=== PATIENT | male | born 1980 | race Caucasian/White ===

== ENCOUNTER 2016-11-13 08:49 | Emergency (ER) | payer BC ==
[2016-11-13] MEDS ORDERED: Sodium Chloride 0.9% 1,000 ML PRIMARY IV ONE ×2 (09:03→10:07)
[2016-11-13] MEDS ORDERED: ONDANSETRON 4 MG/2 ML VIAL IVP ONE (09:03)
[2016-11-13] MEDS ORDERED: KETOROLAC 30 MG/1 ML VIAL IVP ONE (09:03)
[2016-11-13 09:09] LABS: BASOPHILS # (AUTO) 0.04 10*3/UL; BASOPHILS % (AUTO) 0.5 % (0-1); EOSINOPHILS % (AUTO) 2.3 % (0-8); IMM GRAN % (AUTO) 0.1 % (0-5); IMM GRAN# (AUTO) 0.01 10*3/UL; LYMPHOCYTES # (AUTO) 2.95 10*3/uL; LYMPHOCYTES % (AUTO) 36.3 % (10-50); MEAN CORPUSCULAR HEMOGLOBIN 29.6 PG (27-31); MEAN CORPUSCULAR HGB CONC 35.6 g/dL (33-37); MONOCYTES # (AUTO) 0.85 10*3/UL (0.3-0.8); MONOCYTES % (AUTO) 10.5 % (5-15); NEUTROPHILS # (AUTO) 4.09 10*3/UL; NEUTROPHILS % (AUTO) 50.3 % (50-80); RDW COEFFICIENT OF VARIATION 12.9 % (11.5-14.5); WHITE BLOOD COUNT 8.13 10^3/uL (4.8-10.8)
--- NOTE | 2016-11-13 09:09 | PDOC ---
Male Genitourinary Problem HPI - General Chief Complaint: Genitourinary Complaint Stated Complaint: KIDNEY STONE Date Seen by Provider: 11/13/16 Time Seen by Provider: 09:05 Source: POSITIVE: Patient Exam Limitations: POSITIVE: No limitations Nurse's Notes Reviewed & Considered: Yes - History of Present Illness Initial Comments: Patient comes in today to complaint of right flank and abdominal pain. Patient with a history of kidney stones, developed right flank and abdominal pain beginning 2 days ago he states he passed 2 stones in the last 24 hours that he visually salt. Now he has increasing pain beyond what he is already experienced and has come in for further evaluation. He denies any fevers, no headache, no shortness of breath, no cough, he does have nausea but no vomiting. No diarrhea. Patient is presently tachycardic and tachypneic. Body Location Affected: REPORTS: Abdomen, Back Timing: REPORTS: Abrupt, Intermittent, Getting Worse Duration: >24 hours Severity: Severe Quality: REPORTS: Cramping, "Pain", Stabbing, Throbbing Sexual History: REPORTS: Non-Contributory Associated Symptoms: REPORTS: Pain, Blood in Urine, Abdominal Pain, Right Similar Symptoms Previously: Yes Recent Care Received: REPORTS: Denies Any Prior Injuries Related to Current Complaint?: No - Patient Home Medications Home Medications: Home Medications Fluoxetine HCl [Prozac] 20 mg PO DAILY 11/13/16 Omeprazole Magnesium [Prilosec Otc] 20 mg PO DAILY 11/13/16 traZODone Tab [Desyrel Tab] 50 mg PO HS PRN 11/13/16 - Patient Allergies Allergies/Adverse Reactions: Allergies Allergy/AdvReac Type Severity Reaction Status Date / Time No Known Allergies Allergy Verified 11/13/16 08:56 ROS - Limitations ROS Limitations: No Limitations Constitution: REPORTS: Chills, Diaphoresis Cardiovascular: REPORTS: Denies Cardiac Symptoms Respiratory: REPORTS: Denies Resp Symptoms Neurological: REPORTS: Denies Neuro Symptoms Gastrointestinal: REPORTS: Abdominal Pain, Nausea Endocrine: REPORTS: Denies Symptoms Musculoskeletal: REPORTS: Back Pain Genitourinary: REPORTS: Flank Pain, Hematuria Eyes: REPORTS: Denies Symptoms ENT: REPORTS: Denies Symptoms Skin: REPORTS: Denies Skin Symptoms Lympathic: REPORTS: Denies Lympathic Symptoms Immunologic: POSITIVE: Denies Symptoms Psychiatric: POSITIVE: Denies Psych Symptoms Male Genitourinary Exam - General Appearance General Appearance: POSITIVE: Alert, Cooperative, No Evidence of Trauma - Abdomen Abdomen: Soft: (All Quadrants), Normal Bowel Sounds: (All Quadrants), No Splenomegaly: (All Quadrants), No Hepatomegaly: (All Quadrants), No Rebound: ( All Quadrants), No Palpable Pulse: (All Quadrants), Tenderness Noted: (RLQ) - HEENT HEENT: POSITIVE: Head Inspection Nml, Eyes Inspection Nml, Ears Inspection Nml, Nose Inspection Nml, PERRL, EOMI - Neck Neck: POSITIVE: Normal Inspection, No Apparent Injury - Respiratory Respiratory: POSITIVE: No Respiratory Distress, Breath Sounds Normal, Chest Non- Tender - Cardiovascular Cardiovascular: POSITIVE: Regular Rate and Rhythm, Heart Sounds Normal - Back Back: POSITIVE: CVA Tenderness (R) - Extremities Extremity: Non-Tender: (All Extremities), Normal ROM: (All Extremities), Normal Inspection: (All Extremities) - Neurological / Psychological Neurological: POSITIVE: Affect Apporpriate, Oriented X3 - Skin Skin: POSITIVE: Intact, Normal For Race, Warm, Dry, No Rash Male Genitourinary Progress - Results Reviewed by me Xrays/CTs/US Reviewed by me: Yes Discussed with Radiologist: No Lab Results Reviewed: Yes Lab Results: Laboratory Results 11/13/16 Range/Units 08:50 WBC 8.13 (4.8-10.8) 10^3/uL RBC 5.40 (4.70-6.10) 10^6/uL Hgb 16.0 (14.0-18.0) g/dL Hct 45.0 (42.0-52.0) % MCV 83.3 (80-90) FL MCH 29.6 (27-31) PG MCHC 35.6 (33-37) g/dL RDW Std Deviation 38.9 L (39-50) fL RDW Coeff of Malik 12.9 (11.5-14.5) % Plt Count 387 H (140-350) 10*3/uL MPV 10.0 (7.4-12.2) FL Immature Gran % (Auto) 0.1 (0-5) % Neut % (Auto) 50.3 (50-80) % Lymph % (Auto) 36.3 (10-50) % Mason % (Auto) 10.5 (5-15) % Eos % (Auto) 2.3 (0-8) % Baso % (Auto) 0.5 (0-1) % Immature Gran # (Auto) 0.01 10*3/UL Neut # (Auto) 4.09 10*3/UL Lymph # (Auto) 2.95 10*3/uL Mason # (Auto) 0.85 H (0.3-0.8) 10*3/UL Eos # (Auto) 0.19 10*3/UL Baso # (Auto) 0.04 10*3/UL WBC Morphology Comment Normal morphology (NORM) Plt Morphology Comment Normal morphology (NORM) RBC Morph Comment Normal morphology (NORM) Sodium 143 (135-145) meq/L Potassium 3.6 L (3.8-5.2) meq/L Chloride 104 (98-112) meq/L Carbon Dioxide 27 (23-33) meq/L Anion Gap 12 (5-20) BUN 5 L (7-22) mg/dL Creatinine 0.8 (0.70-1.50) mg/dL Estimated GFR > 60 (>60 ml/min/1.73m(2)) BUN/Creatinine Ratio 6.25 (6-20) Glucose 76 L (78-110) mg/dL Calculated Osmolality 291.0 (267-292) mOsm/kg Calcium 9.5 (8.7-10.7) mg/dL Total Bilirubin 0.5 (0.3-1.2) mg/dL AST 21 (21-57) IU/L ALT 34 (21-72) IU/L Alkaline Phosphatase 99 (38-126) IU/L Total Protein 8.0 (6.1-8.0) g/dL Albumin 4.8 (3.5-4.8) g/dL Globulin 3.2 (2.50-4.10) g/dL Albumin/Globulin Ratio 1.50 (1.3-2.0) mg/g Ur Collection Type Clean catch urine Urine Color Yellow Urine Clarity Clear (CLEAR) Urine pH 6.5 (5.0-8.5) Ur Specific [place] 1.025 (1.005-1.030) Urine Protein Negative (NEG) mg/dl Urine Glucose (UA) Negative (NEG) mg/dL Urine Ketones Negative (NEG) Urine Occult Blood Large H (NEG) Urine Nitrate Negative (NEG) Urine Bilirubin Negative (NEG) Urine Urobilinogen 0.2 (0.2) EU/dL Ur Leukocyte Esterase Negative (NEG) Urine RBC 25-30 (NONE) /hpf Urine WBC 0-3 (NONE) Ur Squamous Epith Cells None (NONE) Ur Renal Epithelial Cell None (NONE) Urine Crystals None Urine Bacteria None (NONE) Urine Casts None (NONE) Urine Mucus Moderate (NONE) Urine Trichomonas None (NONE) Urine Yeast None (NONE) Ur Culture Indicated? Culture not set - Patient's Progress Pain Medication Addressed: POSITIVE: Yes Re-Examine Time:: 10:43 Status: POSITIVE: Improved MDM / ED Course: Patient was brought into the emergency Department, examined, an IV was started, blood drawn and sent to lab for studies, radiographic studies were obtained. Patient received 2 L of normal saline, Toradol, morphine sulfate, and Zofran. His symptoms did improve, and he was much more relaxed. Laboratory findings: Are unremarkable. CT findings: Per my interpretation there is a stone at the UVC junction on the right. The stone appears to be only partially obstructing. Assessment: Renal calculi at the right UVJ. Plan: Patient is being discharged home with a prescription for Bailey, Flomax, and instructions for hydration, straining his urine, and to follow up with urology. Patient Care Time - Estimated PCT Patient Care Time (In Minutes): 30 Vital Signs - Recent Vital Signs Vital Signs: Vital Signs (Last 8 hours) Temp Pulse Resp BP Pulse Ox 11/13/16 10:15 82 16 128/105 94 11/13/16 08:51 97.9 F 105 H 20 154/105 98 - VS Reviewed Vital Signs Reviewed: Yes Discharge Clinical Impression: Calculus of right kidney Discharge Disposition: Discharged to Home Condition: Fair Patient Instructions Given at Discharge: Kidney Stones (ED)
[2016-11-13 09:10] LABS: BILIRUBIN,URINE NEGATIVE (NEG); CLARITY,URINE CLEAR (CLEAR); GLUCOSE, URINE (UA) NEGATIVE (NEG); LEUKOCYTE ESTERASE ,URINE NEGATIVE (NEG); NITRATE,URINE NEGATIVE (NEG); OCCULT BLOOD,URINE LARGE (NEG); PH,URINE 6.5 (5.0-8.5); PROTEIN,URINE NEGATIVE (NEG); UROBILINOGEN,URINE 0.2 EU/dL (0.2)
[2016-11-13 09:12] LABS: PLATELET MORPHOLOGY COMMENT NORMAL MORPHOLOGY (NORM); URINE SAMPLE TYPE CLEAN CATCH URINE
[2016-11-13 09:14] LABS: ASPARTATE AMINO TRANSFERASE 21 IU/L (21-57); BILIRUBIN,TOTAL 0.5 mg/dL (0.3-1.2); BLOOD UREA NITROGEN 5 mg/dL (7-22); BUN/CREATININE RATIO 6.25 (6-20); CALCIUM 9.5 mg/dL (8.7-10.7); CHLORIDE 104 meq/L (98-112); CREATININE 0.8 mg/dL (0.70-1.50); EST GLOMERULAR FILTRATION > 60 (>60 ml/min/1.73m(2)); GLUCOSE 76 mg/dL (78-110); POTASSIUM 3.6 meq/L (3.8-5.2); SODIUM 143 meq/L (135-145)
[2016-11-13 09:17] LABS: RBC,URINE 25-30 /hpf; WBC,URINE 0-3
[2016-11-13 09:31] VITALS: TEMP 97.9
[2016-11-13] MEDS: MORPHINE SULFATE 4 MG/1 ML IVP ONE ×2 (09:35→10:08)
[2016-11-13] MEDS ORDERED: MORPHINE SULFATE 4 MG/1 ML IVP ONE (10:07)
[2016-11-13] MEDS ORDERED: TAMSULOSIN 0.4 MG CAPSULE PO ONE (10:08)
[2016-11-13 10:16] VITALS: RESP 16
--- NOTE | 2016-11-13 11:38 | DI ---
CT ABDOMEN SCAN WITHOUT IV CONTRAST, 11/13/2016 10:00 AM : Clinical History: Right flank pain and right groin pain with gross hematuria. Previous Exam: None at this facility. Scans are performed from the lower lung bases through the liver and kidneys without IV contrast. Sagi ttal and coronal reformatted images are generated. The lung bases are clear. The liver is normal. The gallbladder is grossly normal. There is no abnorma lity of the spleen, pancreas, and adrenal glands. Both kidneys are normal in size, shape, position an d contour. There is no left hydronephrosis or hydroureter. There is no right hydronephrosis but there is mild right hydroureter secondary to a 3 mm calculus in the distal right ureter at the ureterovesi cular junction. There is no extravasation of urine. There is no right or left ureteral calculus visua lized. There are no abnormal retrocrural or periaortic nodes. No ascites is present. READIN. Mild hydroureter on the right side secondary to a 3 mm distal ureteral calculus at the ureteroves icular junction. There is no extravasation and this is a low-grade partial obstruction. Both kidneys in the left ureter are normal. 2. The remainder of the exam is normal. CT PELVIS SCAN WITHOUT IV CONTRAST, 11/13/2016 10:00 AM : Clinical History: See above. Previous Exam: None. Scans are performed from the inferior margin of the liver and kidneys to the symphysis pubis without IV contrast. There is no free fluid collection and there is no adenopathy. The appendix is normal. The appendix is filled with high density material that either represents ingested antacid such as milk of magnesia, Maalox, or TUMS, or this may represent some fecal lifts. The small bowel, terminal ileum, and ileocec al valve are normal. The colon is also normal. There is a small umbilical hernia through which only m esenteric fat has herniated on the right side. READING: Normal CT pelvis scan.
== END 2016-11-13 11:01 | disposition home or self-care (01) ==
LOC: ER 08:49
DX: N20.2 Calculus of kidney with calculus of ureter (principal); R11.0 Nausea; M54.5 Low back pain
CPT/HCPCS: 74176; 80053; 81001; 81003; 85025; 96361; 96374; 96375; 96376; 99283; 99284; J1885; J2270; J2405; J7030

== ENCOUNTER 2017-02-02 10:55 | Emergency (ER) | payer BC ==
[2017-02-02 11:25] VITALS: RESP 18; TEMP 98.5
[2017-02-02] MEDS ORDERED: Sodium Chloride 0.9% 1,000 ML PRIMARY IV ONE (11:29)
[2017-02-02] MEDS ORDERED: ONDANSETRON 4 MG/2 ML VIAL IVP ONE (11:29)
[2017-02-02] MEDS ORDERED: MORPHINE SULFATE 4 MG/1 ML IVP ONE ×2 (11:29→12:39)
--- NOTE | 2017-02-02 11:33 | PDOC ---
Nausea/Vomiting/Diarrhea HPI - General Chief Complaint: Nausea / Vomiting / Diarrhea Stated Complaint: N/V, BLOODY DIARRHEA X SEVERAL DAYS Date Seen by Provider: 02/02/17 Time Seen by Provider: 11:28 Source: POSITIVE: Patient Exam Limitations: POSITIVE: No limitations Nurse's Notes Reviewed & Considered: Yes - History of Present Illness Initial Comments: Patient comes in today with chief complaint of abdominal pain. His abdominal pain is predominantly in his right lower quadrant but does radiate throughout his abdomen. He's having bloody diarrhea with mucus present. He has a history of Crohn's disease and feels this is a Crohn's flare. Ongoing for 3 days. He states he does have chills but denies any fever or sweats. He denies any nausea or vomiting but he does have bloody diarrhea. Denies any chest pain, shortness of breath, cough. Denies any rashes. Body Location Affected: REPORTS: Abdomen Timing: REPORTS: Constant, Getting Worse Duration: <1 week Severity: Moderate Quality: REPORTS: Cramping, "Pain", Stabbing, Tenderness Abdominal Pain Onset Location: REPORTS: RLQ, Generalized abdomen Abdominal Pain Radiation: REPORTS: Periumbilical Context: REPORTS: None Modifying Factors: improves with: Nothing Associated Symptoms: REPORTS: Mucous Diarrhea, Bloody Diarrhea, Cramping Similar Symptoms Previously: Yes Recent Care Received: REPORTS: Denies Any Prior Injuries Related to Current Complaint?: Yes (Crohn's disease) - Patient Home Medications Home Medications: Home Medications Fluoxetine HCl [Prozac] 40 mg PO DAILY 11/13/16 Omeprazole Magnesium [Prilosec Otc] 20 mg PO DAILY 11/13/16 traZODone Tab [Desyrel Tab] 50 mg PO HS PRN 11/13/16 - Patient Allergies Allergies/Adverse Reactions: Allergies Allergy/AdvReac Type Severity Reaction Status Date / Time No Known Allergies Allergy Verified 02/02/17 11:07 Past Medical History - heen HEENT History: Denies History Cardiovascular History: Denies History Respiratory History: Denies History Gastrointestinal History: GERD, Crohn's Genitourinary History: Kidney Stones Additional Genitourinary History: MAY 2016 Endocrine History: Denies History Musculoskeletal History: Denies History Prosthesis or Implant: No Neurological History: Denies History Blood Disorders: Denies History Psychiatric History: Denies History Additional Psychiatric History: 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 AND IS NOW WEANING OFF PROZAC Male Reproductive History: Denies History Cancer History: Denies History In Past Year Been Physically Harmed or Verbally Threatened: No History of MDRO: No Tobacco Use: Former Smoker Alcohol Use: Rarely Substance Use Type: None Previous Surgical History: Yes Type / Date of Surgery: THORACIC OUTLET SURGERY, R SHOULDER Anesthesia Reactions: No Malignant Hyperthermia: No Significant Family History: No pertinent family hx ROS - Limitations ROS Limitations: No Limitations Constitution: REPORTS: Chills Cardiovascular: REPORTS: Denies Cardiac Symptoms Respiratory: REPORTS: Denies Resp Symptoms Neurological: REPORTS: Denies Neuro Symptoms Gastrointestinal: REPORTS: Abdominal Pain, Diarrhea, Bloody Stools Endocrine: REPORTS: Denies Symptoms Musculoskeletal: REPORTS: Denies MS Symptoms Genitourinary: REPORTS: Denies Symptoms Eyes: REPORTS: Denies Symptoms ENT: REPORTS: Denies Symptoms Skin: REPORTS: Denies Skin Symptoms Lympathic: REPORTS: Denies Lympathic Symptoms Immunologic: POSITIVE: Denies Symptoms Psychiatric: POSITIVE: Denies Psych Symptoms Nausea/Vomiting/Diarrhea Exam - General Appearance General Appearance: POSITIVE: Alert, Cooperative, No Evidence of Trauma, Moderate Distress - HEENT HEENT: POSITIVE: Head Inspection Nml, Eyes Inspection Nml, Ears Inspection Nml, Nose Inspection Nml, PERRL, EOMI - Neck Neck: POSITIVE: Supple, Normal Inspection, Non Tender - Respiratory Respiratory: POSITIVE: No Respiratory Distress, Breath Sounds Normal, Chest Non- Tender - Cardiovascular Cardiovascular: POSITIVE: Regular Rate and Rhythm, Heart Sounds Normal - Chest Chest: POSITIVE: Non Tender - Abdomen Abdomen: Soft: (All Quadrants), Normal Bowel Sounds: (All Quadrants), No Splenomegaly: (All Quadrants), No Hepatomegaly: (All Quadrants), Tenderness Noted: (RLQ), Guarding: (RLQ) - Back Back: POSITIVE: Normal Inspection - Skin Skin: POSITIVE: Intact, Normal For Race, Warm, Dry, No Rash - Extremities Extremity: Non-Tender: (All Extremities), Normal ROM: (All Extremities), Normal Inspection: (All Extremities), Pelvis Stable: (All Extremities) - Neurological / Psychological Neurological: POSITIVE: Affect Apporpriate, Oriented X3, Motor Normal, Sensation Normal N/V/D Progress - Results Reviewed by me Xrays/CTs/US Reviewed by me: Yes Discussed with Radiologist: Yes Lab Results Reviewed: Yes Lab Results:: Laboratory Results 02/02/17 02/02/17 Range/Units 11:00 12:38 WBC 7.05 (4.8-10.8) 10^3/uL RBC 4.73 (4.70-6.10) 10^6/uL Hgb 14.3 (14.0-18.0) g/dL Hct 41.0 L (42.0-52.0) % MCV 86.7 (80-90) FL MCH 30.2 (27-31) PG MCHC 34.9 (33-37) g/dL RDW Std Deviation 42.6 (39-50) fL RDW Coeff of Malik 13.8 (11.5-14.5) % Plt Count 345 (140-350) 10*3/uL MPV 9.7 (7.4-12.2) FL Immature Gran % (Auto) 0.1 (0-5) % Neut % (Auto) 62.3 (50-80) % Lymph % (Auto) 26.4 (10-50) % Hyde % (Auto) 9.9 (5-15) % Eos % (Auto) 0.7 (0-8) % Baso % (Auto) 0.6 (0-1) % Immature Gran # (Auto) 0.01 10*3/UL Neut # (Auto) 4.39 10*3/UL Lymph # (Auto) 1.86 10*3/uL Hyde # (Auto) 0.70 (0.3-0.8) 10*3/UL Eos # (Auto) 0.05 10*3/UL Baso # (Auto) 0.04 10*3/UL WBC Morphology Comment Normal morphology (NORM) Plt Morphology Comment Normal morphology (NORM) RBC Morph Comment Normal morphology (NORM) PT 10.7 (9.7-11.4) secs INR 1.04 (0.00-5.90) N/A Sodium 141 (135-145) meq/L Potassium 3.5 L (3.8-5.2) meq/L Chloride 104 (98-112) meq/L Carbon Dioxide 22 L (23-33) meq/L Anion Gap 15 (5-20) BUN 8 (7-22) mg/dL Creatinine 0.8 (0.70-1.50) mg/dL Estimated GFR > 60 (>60 ml/min/1.73m(2)) BUN/Creatinine Ratio 10.00 (6-20) Glucose 89 (78-110) mg/dL Calculated Osmolality 288.0 (267-292) mOsm/kg Calcium 9.3 (8.7-10.7) mg/dL Magnesium 2.0 (1.6-2.4) mg/dL Total Bilirubin 0.7 (0.3-1.2) mg/dL AST 28 (21-57) IU/L ALT 28 (21-72) IU/L Alkaline Phosphatase 82 (38-126) IU/L Total Protein 7.7 (6.1-8.0) g/dL Albumin 4.4 (3.5-4.8) g/dL Globulin 3.3 (2.50-4.10) g/dL Albumin/Globulin Ratio 1.30 (1.3-2.0) mg/g Ur Collection Type Clean catch urine Urine Color Yellow Urine Clarity Clear (CLEAR) Urine pH 7.5 (5.0-8.5) Ur Specific [place] 1.015 (1.005-1.030) Urine Protein Negative (NEG) mg/dl Urine Glucose (UA) Negative (NEG) mg/dL Urine Ketones Negative (NEG) Urine Occult Blood Negative (NEG) Urine Nitrate Negative (NEG) Urine Bilirubin Negative (NEG) Urine Urobilinogen 0.2 (0.2) EU/dL Ur Leukocyte Esterase Negative (NEG) Ur Culture Indicated? Culture not set Stool Occult Blood Negative (NEGATIVE) - Patient's Progress Pain Medication Addressed: POSITIVE: Yes Re-examine Time: 13:34 Status: POSITIVE: Improved MDM / ED Course: Patient was examined, IV started, blood drawn and sent to the lab for studies, radiographic examinations obtained. Patient received IV morphine 2 doses, Zofran, and normal saline. His symptoms did improve. Findings: CBC is unremarkable, comprehensive metabolic panel is unremarkable, urinalysis is negative, CT scan of his abdomen shows no acute intra-abdominal processes. Assessment: Abdominal pain with possible Crohn's flare. Next Plan: Discharge home, prescription for pain medicine, prescription for nausea medicine, and follow up with GI. - Consult Counseled: POSITIVE: Patient, RE: Lab Results, RE: Radiology Results, RE: DX, RE : Need for F/U Patient Care Time - Estimated PCT Patient Care Time (In Minutes): 45 Vital Signs - Recent Vital Signs Vital Signs: Vital Signs (Last 8 hours) Temp Pulse Resp BP Pulse Ox 02/02/17 10:55 98.5 F 87 18 151/108 96 - VS Reviewed Vital Signs Reviewed: Yes Discharge Clinical Impression: Abdominal pain Discharge Disposition: Discharged to Home Condition: Stable Patient Instructions Given at Discharge: Acute Abdominal Pain (ED)
[2017-02-02 11:37] LABS: BASOPHILS # (AUTO) 0.04 10*3/UL; BASOPHILS % (AUTO) 0.6 % (0-1); BILIRUBIN,URINE NEGATIVE (NEG); COLOR,URINE YELLOW; EOSINOPHILS # (AUTO) 0.05 10*3/UL; EOSINOPHILS % (AUTO) 0.7 % (0-8); GLUCOSE, URINE (UA) NEGATIVE (NEG); HEMOGLOBIN 14.3 g/dL (14.0-18.0); LYMPHOCYTES # (AUTO) 1.86 10*3/uL; MEAN CORPUSCULAR HEMOGLOBIN 30.2 PG (27-31); MEAN CORPUSCULAR HGB CONC 34.9 g/dL (33-37); MEAN CORPUSCULAR VOLUME 86.7 FL (80-90); MEAN PLATELET VOLUME 9.7 FL (7.4-12.2); MONOCYTES % (AUTO) 9.9 % (5-15); NEUTROPHILS # (AUTO) 4.39 10*3/UL; NEUTROPHILS % (AUTO) 62.3 % (50-80); NITRATE,URINE NEGATIVE (NEG); OCCULT BLOOD,URINE NEGATIVE (NEG); PH,URINE 7.5 (5.0-8.5); PROTEIN,URINE NEGATIVE (NEG); RED BLOOD COUNT 4.73 10^6/uL (4.70-6.10); UROBILINOGEN,URINE 0.2 EU/dL (0.2)
[2017-02-02 11:39] LABS: PLATELET MORPHOLOGY COMMENT NORMAL MORPHOLOGY (NORM); RBC MORPHOLOGY COMMENT NORMAL MORPHOLOGY (NORM); WBC MORPHOLOGY COMMENT NORMAL MORPHOLOGY (NORM)
[2017-02-02 11:40] LABS: CLARITY,URINE CLEAR (CLEAR); URINE SAMPLE TYPE CLEAN CATCH URINE
[2017-02-02 11:42] LABS: BLOOD UREA NITROGEN 8 mg/dL (7-22); CALCIUM 9.3 mg/dL (8.7-10.7); EST GLOMERULAR FILTRATION > 60 (>60 ml/min/1.73m(2)); SERUM ALBUMIN 4.4 g/dL (3.5-4.8)
--- NOTE | 2017-02-02 12:30 | DI ---
CT ABDOMEN SCAN WITH IV CONTRAST, 02/02/2017 11:29 AM : Clinical History: Abdominal pain with bloody diarrhea. Previous Exam: 11/13/2016. Scans are performed from the lower lung bases through the liver and kidneys with IV contrast. 95 ml o f Isovue 300 was injected IV. Water was used for rectal contrast but the patient could not tolerate t he standard volume. The lung bases are clear. The liver is normal. The gallbladder is grossly normal. There is no abnorma lity of the spleen, pancreas, and adrenal glands. Both kidneys are normal in size, shape, position an d contour. There is no hydronephrosis or hydroureter. No renal or ureteral calculi are present. There are no abnormal retrocrural or periaortic nodes. No ascites is present. READING: Normal CT abdomen scan. CT PELVIS SCAN WITH IV CONTRAST, 02/02/2017 11:29 AM: Clinical History: See above. Previous Exam: 11/13/2016. Scans are performed from just superior to the umbilicus to the symphysis pubis with IV contrast. This is the same bolus of contrast used for the CT scans of the abdomen. Scans through the lower abdomen and pelvis show no masses or abnormal fluid collections. There is no adenopathy. The appendix is not identified with certainty, but there is no inflammatory mass in eithe r in the cecal tip or in the right lower quadrant. The small bowel, terminal ileum, and ileocecal slime ve are normal. The colon is normal. There is no evidence of mucosal thickening to indicate acute coli tis. There are no diverticula, or evidence to suggest Crohn's disease. There are no hernias. READING: Normal CT scan of the pelvis. There is no evidence to indicate CT findings of acute colitis or Crohn' s disease.
== END 2017-02-02 13:47 | disposition home or self-care (01) ==
LOC: ER 10:55
DX: R10.31 Right lower quadrant pain (principal); K92.1 Melena; K50.90 Crohn's disease, unspecified, without complications
CPT/HCPCS: 74177; 80053; 81003; 82272; 83735; 85025; 85610; 87205; 96361; 96374; 96375; 96376; 99283; J2270; J2405; J7030

== ENCOUNTER 2017-02-17 11:57 | Emergency (ER) | payer BC ==
[2017-02-17] MEDS: Sodium Chloride 0.9% 1,000 ML PRIMARY IV ONE ×2 (12:05→14:18)
[2017-02-17] MEDS ORDERED: HYDROmorphone 2 MG/1 ML IVP ONE ×2 (12:13→13:41)
[2017-02-17] MEDS ORDERED: ONDANSETRON 4 MG/2 ML VIAL IVP ONE (12:13)
[2017-02-17] MEDS ORDERED: NORMAL SALINE 10 ML SYRINGE FLUSH IVP PRN (12:13)
[2017-02-17] MEDS ORDERED: TAMSULOSIN 0.4 MG CAPSULE PO ONE (12:15)
[2017-02-17 12:17] VITALS: RESP 18; TEMP 98.6
[2017-02-17 12:20] LABS: BASOPHILS # (AUTO) 0.06 10*3/UL; BASOPHILS % (AUTO) 0.8 % (0-1); EOSINOPHILS # (AUTO) 0.05 10*3/UL; EOSINOPHILS % (AUTO) 0.6 % (0-8); HEMATOCRIT 41.2 % (42.0-52.0); HEMOGLOBIN 14.4 g/dL (14.0-18.0); LYMPHOCYTES # (AUTO) 2.53 10*3/uL; MEAN CORPUSCULAR HEMOGLOBIN 30.3 PG (27-31); MEAN CORPUSCULAR VOLUME 86.7 FL (80-90); MEAN PLATELET VOLUME 9.2 FL (7.4-12.2); MONOCYTES # (AUTO) 0.68 10*3/UL (0.3-0.8); MONOCYTES % (AUTO) 8.6 % (5-15); NEUTROPHILS # (AUTO) 4.59 10*3/UL; NEUTROPHILS % (AUTO) 57.8 % (50-80); RED BLOOD COUNT 4.75 10^6/uL (4.70-6.10)
[2017-02-17 12:24] LABS: PLATELET MORPHOLOGY COMMENT NORMAL MORPHOLOGY (NORM); RBC MORPHOLOGY COMMENT NORMAL MORPHOLOGY (NORM); WBC MORPHOLOGY COMMENT NORMAL MORPHOLOGY (NORM)
[2017-02-17 12:27] LABS: BLOOD UREA NITROGEN 7 mg/dL (7-22); BUN/CREATININE RATIO 8.75 (6-20); CALCIUM 9.6 mg/dL (8.7-10.7); EST GLOMERULAR FILTRATION > 60 (>60 ml/min/1.73m(2)); LIPASE 92 IU/L (23-300); SERUM ALBUMIN 4.6 g/dL (3.5-4.8)
[2017-02-17 13:11] LABS: BILIRUBIN,URINE NEGATIVE (NEG); COLOR,URINE YELLOW; GLUCOSE, URINE (UA) NEGATIVE (NEG); NITRATE,URINE NEGATIVE (NEG); OCCULT BLOOD,URINE LARGE (NEG); PH,URINE 8.5 (5.0-8.5); PROTEIN,URINE NEGATIVE (NEG); UROBILINOGEN,URINE 0.2 EU/dL (0.2)
[2017-02-17 13:13] LABS: CLARITY,URINE SLIGHTLY CLOUDY (CLEAR)
[2017-02-17 13:14] LABS: RBC,URINE >100 /hpf; SQUAMOUS EPITHELIAL CELL,UR RARE; URINE SAMPLE TYPE VOID
[2017-02-17] MEDS ORDERED: KETOROLAC 30 MG/1 ML VIAL IVP ONE (13:32)
--- NOTE | 2017-02-17 14:25 | DI ---
CT ABDOMEN SCAN WITH IV CONTRAST, 02/17/2017 12:14 PM : Clinical History: Abdominal pain. Previous Exam: 02/02/2017. Scans are performed from the lower lung bases through the liver and kidneys with IV contrast. 75 ml o f Isovue 300 was injected IV. The lung bases are clear. The liver is normal. The gallbladder is grossly normal. There is no abnorma lity of the spleen, pancreas, and adrenal glands. Both kidneys are normal in size, shape, position an d contour. There is no hydronephrosis or left hydroureter. The right ureter is slightly larger in madie iber than the left side but no ureteral calculus is identified. No renal or left ureteral calculi are present. There are no abnormal retrocrural or periaortic nodes. No ascites is present. READIN. The right ureter is slightly larger than the left side but no renal or ureteral calculi are seen and there is no calculus in the bladder. The left kidney and ureter are normal. 2. The remainder of the exam is normal. CT PELVIS SCAN WITH IV CONTRAST, 02/17/2017 12:14 PM: Clinical History: See above. Previous Exam: 02/02/2017. Scans are performed from just superior to the umbilicus to the symphysis pubis with IV contrast. This is the same bolus of contrast used for the CT scans of the abdomen. Scans through the lower abdomen and pelvis show no masses or abnormal fluid collections. There is no adenopathy. There is "malrotation" of the cecum and the cecum lies just inferior to the gallbladder a nd this is a different location from the scans performed one week earlier. The appendix on the previo us study was readily visible but it is not visible on this current exam. There is no inflammatory/inf iltrative change in the cecum or in the periserosal tissues and mesenteric fat surrounding the cecum. There is no inflammatory mass in the right lower quadrant. The small bowel, terminal ileum, and ileo cecal valve are normal. The remainder of the colon is also normal. There are no hernias. READIN. The cecum is in a different location than on the previous study performed about one week earlier. The appendix is not visualized on this study but was readily visible on the previous exam. However, the cecal tip is normal and there is no inflammatory/infiltrative change in the region of the cecum o r in the right lower quadrant. 2. The remainder of the exam is normal.
--- NOTE | 2017-02-17 14:43 | PDOC ---
Male Genitourinary Problem HPI - General Chief Complaint: Genitourinary Complaint Stated Complaint: i'm passing kidney stones Date Seen by Provider: 02/17/17 Time Seen by Provider: 12:01 Source: POSITIVE: Patient Exam Limitations: POSITIVE: No limitations Nurse's Notes Reviewed & Considered: Yes - History of Present Illness Initial Comments: The patient is a 36-year-old male. He states that around 6:30 AM this morning, approximately 5-1/2 hours [employer]UFTING [employer] he developed right flank and right lower quadrant pain abruptly. He states he had some hematuria and he thinks that "I may have passed a kidney stone". Patient reportedly has a history of kidney stones. He states that since 6:30 AM he has continued to have some right lower quadrant pain radiating into his penis. No penile discharges. No fevers or chills. No nausea, vomiting, diarrhea, melena, hematochezia or hematemesis. No dysuria. He states he has a history of Crohn's disease. Body Location Affected: REPORTS: Abdomen (Right flank) Timing: REPORTS: Abrupt, Constant Duration: 4-6 hours Severity: Moderate Quality: REPORTS: "Pain" Context: REPORTS: Other (please comment) (As above). DENIES: Drug Use, Lifting , Trauma, Recent Surgery Sexual History: REPORTS: Non-Contributory Associated Symptoms: REPORTS: Blood in Urine, Abdominal Pain (Right lower abdomen) Similar Symptoms Previously: Yes Recent Care Received: REPORTS: Recently Seen, Treated by MD (Patient states he was treated for a flareup of Crohn's disease 2 weeks ago.) - Patient Home Medications Home Medications: Home Medications Fluoxetine HCl [Prozac] 40 mg PO DAILY 11/13/16 Omeprazole Magnesium [Prilosec Otc] 20 mg PO DAILY 11/13/16 traZODone Tab [Desyrel Tab] 50 mg PO HS PRN 11/13/16 HYDROcodone/APAP 10/325 Tab [[place] 10/325 Tab] 1 tab PO Q6H PRN #29 tab Tamsulosin HCl [Flomax] 0.4 mg PO DAILY #10 cap 02/17/17 - Patient Allergies Allergies/Adverse Reactions: Allergies Allergy/AdvReac Type Severity Reaction Status Date / Time No Known Allergies Allergy Verified 02/17/17 12:03 Past Medical History - heen HEENT History: Denies History Cardiovascular History: Denies History Respiratory History: Denies History Gastrointestinal History: GERD, Crohn's Genitourinary History: Kidney Stones Additional Genitourinary History: MAY 2016, OCT 2016 Endocrine History: Denies History Musculoskeletal History: Denies History Prosthesis or Implant: No Neurological History: Denies History Blood Disorders: Denies History Psychiatric History: Depression Additional Psychiatric History: 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 Male Reproductive History: Denies History Cancer History: Denies History In Past Year Been Physically Harmed or Verbally Threatened: No History of MDRO: No Tobacco Use: Former Smoker Alcohol Use: Rarely Substance Use Type: None Previous Surgical History: Yes Type / Date of Surgery: THORACIC OUTLET SURGERY, R SHOULDER Anesthesia Reactions: No Malignant Hyperthermia: No Significant Family History: No pertinent family hx Past Medical History Reviewed: Reviewed - No Changes ROS - Limitations ROS Limitations: No Limitations Constitution: REPORTS: Denies Symptoms Cardiovascular: REPORTS: Denies Cardiac Symptoms Respiratory: REPORTS: Denies Resp Symptoms Neurological: REPORTS: Denies Neuro Symptoms Gastrointestinal: REPORTS: Abdominal Pain (Right lower abdomen and right flank) Endocrine: REPORTS: Denies Symptoms Musculoskeletal: REPORTS: Denies MS Symptoms Genitourinary: REPORTS: Flank Pain (Right), Hematuria Eyes: REPORTS: Denies Symptoms ENT: REPORTS: Denies Symptoms Skin: REPORTS: Denies Skin Symptoms Lympathic: REPORTS: Denies Lympathic Symptoms Immunologic: POSITIVE: Denies Symptoms Psychiatric: POSITIVE: Denies Psych Symptoms Male Genitourinary Exam - General Appearance General Appearance: POSITIVE: Alert, Cooperative, No Acute Distress, No Evidence of Trauma - Abdomen Abdomen: Soft: (All Quadrants), Normal Bowel Sounds: (All Quadrants), Denies Tenderness: (LLQ), (LUQ), (RUQ), No Splenomegaly: (All Quadrants), No Hepatomegaly: (All Quadrants), No Guarding: (All Quadrants), No Rebound: (All Quadrants), No Palpable Pulse: (All Quadrants), No Palpabale Mass: (All Quadrants), No Distention: (All Quadrants), No Rigidity: (All Quadrants), Tenderness Noted: (RLQ) Additional Details: Abdominal examination shows bowel sounds to be active. Patient does indicate discomfort on firm deep palpation right lower quadrant without masses, organomegaly or rebound. No hernias. No testicular pain on palpation. Circumcised. No penile discharge. - Genital / Rectal Genitals: POSITIVE: Normal Inspection, Normal Palp. of Testicles, Circumcised - Neck Neck: POSITIVE: Normal Inspection, No Apparent Injury - Respiratory Respiratory: POSITIVE: No Respiratory Distress, Breath Sounds Normal, Chest Non- Tender - Cardiovascular Cardiovascular: POSITIVE: Regular Rate and Rhythm, Heart Sounds Normal, Equal Pulses, Strong Pulses Peripheral Pulses: Radial (R): 2+, Radial (L): 2+ - Back Back: POSITIVE: CVA Tenderness (R) (Mild discomfort right flank expressed on firm percussion) - Extremities Extremity: Non-Tender: (All Extremities), Normal ROM: (All Extremities), Normal Inspection: (All Extremities) - Neurological / Psychological Neurological: POSITIVE: 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 The right ureter is a little bit larger than the left. No definite ureterolith's identified. Appendix normal. Lab Results Reviewed: Yes Lab Results: Laboratory Results 02/17/17 02/17/17 Range/Units 12:18 13:07 WBC 7.93 (4.8-10.8) 10^3/uL RBC 4.75 (4.70-6.10) 10^6/uL Hgb 14.4 (14.0-18.0) g/dL Hct 41.2 L (42.0-52.0) % MCV 86.7 (80-90) FL MCH 30.3 (27-31) PG MCHC 35.0 (33-37) g/dL RDW Std Deviation 41.3 (39-50) fL RDW Coeff of Malik 13.3 (11.5-14.5) % Plt Count 399 H (140-350) 10*3/uL MPV 9.2 (7.4-12.2) FL Immature Gran % (Auto) 0.3 (0-5) % Neut % (Auto) 57.8 (50-80) % Lymph % (Auto) 31.9 (10-50) % [place] % (Auto) 8.6 (5-15) % Eos % (Auto) 0.6 (0-8) % Baso % (Auto) 0.8 (0-1) % Immature Gran # (Auto) 0.02 10*3/UL Neut # (Auto) 4.59 10*3/UL Lymph # (Auto) 2.53 10*3/uL [place] # (Auto) 0.68 (0.3-0.8) 10*3/UL Eos # (Auto) 0.05 10*3/UL Baso # (Auto) 0.06 10*3/UL WBC Morphology Comment Normal morphology (NORM) Plt Morphology Comment Normal morphology (NORM) RBC Morph Comment Normal morphology (NORM) Sodium 141 (135-145) meq/L Potassium 3.6 L (3.8-5.2) meq/L Chloride 102 (98-112) meq/L Carbon Dioxide 25 (23-33) meq/L Anion Gap 14 (5-20) BUN 7 (7-22) mg/dL Creatinine 0.8 (0.70-1.50) mg/dL Estimated GFR > 60 (>60 ml/min/1.73m(2)) BUN/Creatinine Ratio 8.75 (6-20) Glucose 91 (78-110) mg/dL Calculated Osmolality 289.0 (267-292) mOsm/kg Calcium 9.6 (8.7-10.7) mg/dL Total Bilirubin 0.5 (0.3-1.2) mg/dL AST 27 (21-57) IU/L ALT 33 (21-72) IU/L Alkaline Phosphatase 87 (38-126) IU/L Total Protein 8.0 (6.1-8.0) g/dL Albumin 4.6 (3.5-4.8) g/dL Globulin 3.4 (2.50-4.10) g/dL Albumin/Globulin Ratio 1.30 (1.3-2.0) mg/g Amylase 80 (30-110) U/L Lipase 92 (23-300) IU/L Ur Collection Type Void Urine Color Yellow Urine Clarity Slightly cloudy (CLEAR) Urine pH 8.5 (5.0-8.5) Ur Specific [place] 1.015 (1.005-1.030) Urine Protein Negative (NEG) mg/dl Urine Glucose (UA) Negative (NEG) mg/dL Urine Ketones Negative (NEG) Urine Occult Blood Large H (NEG) Urine Nitrate Negative (NEG) Urine Bilirubin Negative (NEG) Urine Urobilinogen 0.2 (0.2) EU/dL Ur Leukocyte Esterase Negative (NEG) Urine RBC >100 (NONE) /hpf Urine WBC None (NONE) Ur Squamous Epith Cells Rare (NONE) Ur Renal Epithelial Cell None (NONE) Urine Crystals None Urine Bacteria None (NONE) Urine Casts None (NONE) Urine Mucus None (NONE) Urine Trichomonas None (NONE) Urine Yeast None (NONE) Ur Culture Indicated? Culture not set - Patient's Progress Pain Medication Addressed: POSITIVE: Yes (Dilaudid IV for pain) School/Work Release Addressed: POSITIVE: Yes (May return to work) Re-Examine Time:: 14:00 Re-Examine Comment: Minimal discomfort on discharge. Status: POSITIVE: Improved, Re-Examined - Consult Counseled: POSITIVE: Patient, RE: Lab Results, RE: Radiology Results, RE: DX, RE : Need for F/U Patient Care Time - Estimated PCT Patient Care Time (In Minutes): 50 Vital Signs - Recent Vital Signs Vital Signs: Vital Signs (Last 8 hours) Temp Pulse Pulse Resp BP BP Pulse Ox 02/17/17 14:22 98.6 F 84 18 137/64 98 02/17/17 11:58 98.6 F 90 18 147/82 98 - VS Reviewed Vital Signs Reviewed: Yes Discharge Clinical Impression: Ureterolithiasis, Hematuria Discharge Disposition: Discharged to Home Condition: Stable Prescriptions / Orders: Tamsulosin HCl [Flomax] 0.4 mg PO DAILY #10 cap HYDROcodone/APAP 10/325 Tab [[place] 10/325 Tab] 1 tab PO Q6H PRN #29 tab PRN Reason: Pain Patient Instructions Given at Discharge: Hematuria (ED), Ureteral Stones (ED) Additional Instructions: Your blood tests are normal. Analysis of your urine does show some red blood cells in your urine microscopically. CT scan of the abdomen and pelvis shows no definite stones in your ureter, although radiologist feels that the right ureter is a little prominent, which could be compatible with a recently passed stone. It is possible that you may have a very small nonobstructing stone which you're trying to pass. Please do the following: Strain your urine and check for the passage of a small stone, increase her fluid intake, Flomax taken one daily, hydrocodone/APAP taken one every 6 hours as necessary for pain. Follow-up with urology in [place] if you continue having symptoms beyond 2 or 3 days. Return here anytime if condition worsens, especially if you develop fevers or chills. Follow Up With: NONE,NONE [Primary Care Provider] - (Instructions as above. Follow-up with urology in [place] as above. Return here as necessary.)
== END 2017-02-17 14:22 | disposition home or self-care (01) ==
LOC: ER 11:57
DX: N20.1 Calculus of ureter (principal); R31.9 Hematuria, unspecified; K50.90 Crohn's disease, unspecified, without complications; R10.31 Right lower quadrant pain
CPT/HCPCS: 74177; 80053; 81001; 81003; 82150; 83690; 85025; 96361; 96374; 96375; 96376; 99283; 99284; J1885; J1170; J2405; J7030

== ENCOUNTER → 2017-02-17 | Outpatient (CLI) | payer BC | LOC: MOB LAB 12:39 | PROVIDERS: ATTEND Physician Assistant | DX: R10.84 Generalized abdominal pain (principal); R31.9 Hematuria, unspecified | CPT/HCPCS: 87088 ==

== ENCOUNTER 2017-03-09 12:19 | Emergency (ER) | payer BC ==
[2017-03-09] MEDS ORDERED: NORMAL SALINE 10 ML SYRINGE FLUSH IVP PRN ×2 (12:45→12:47)
[2017-03-09] MEDS ORDERED: Sodium Chloride 0.9% 1,000 ML PRIMARY IV ONE (12:45)
[2017-03-09] MEDS ORDERED: ONDANSETRON 4 MG/2 ML VIAL IVP ONE (12:45)
[2017-03-09] MEDS ORDERED: HYDROmorphone 2 MG/1 ML IVP ONE ×2 (12:45→14:06)
[2017-03-09 12:56] VITALS: RESP 18; TEMP 98.1
[2017-03-09 13:05] LABS: BASOPHILS # (AUTO) 0.05 10*3/UL; BASOPHILS % (AUTO) 0.6 % (0-1); EOSINOPHILS # (AUTO) 0.03 10*3/UL; EOSINOPHILS % (AUTO) 0.3 % (0-8); HEMATOCRIT 41.8 % (42.0-52.0); HEMOGLOBIN 14.1 g/dL (14.0-18.0); LYMPHOCYTES # (AUTO) 1.92 10*3/uL; MEAN CORPUSCULAR HEMOGLOBIN 29.3 PG (27-31); MEAN CORPUSCULAR HGB CONC 33.7 g/dL (33-37); MEAN CORPUSCULAR VOLUME 86.7 FL (80-90); MEAN PLATELET VOLUME 9.7 FL (7.4-12.2); MONOCYTES # (AUTO) 0.76 10*3/UL (0.3-0.8); MONOCYTES % (AUTO) 8.5 % (5-15); NEUTROPHILS # (AUTO) 6.18 10*3/UL; NEUTROPHILS % (AUTO) 68.6 % (50-80); RED BLOOD COUNT 4.82 10^6/uL (4.70-6.10)
[2017-03-09 13:08] LABS: PLATELET MORPHOLOGY COMMENT NORMAL MORPHOLOGY (NORM); RBC MORPHOLOGY COMMENT NORMAL MORPHOLOGY (NORM); WBC MORPHOLOGY COMMENT NORMAL MORPHOLOGY (NORM)
[2017-03-09 13:15] LABS: BLOOD UREA NITROGEN 8 mg/dL (7-22); CALCIUM 8.8 mg/dL (8.7-10.7); EST GLOMERULAR FILTRATION > 60 (>60 ml/min/1.73m(2)); LIPASE 108 IU/L (23-300); SERUM ALBUMIN 4.2 g/dL (3.5-4.8)
[2017-03-09] MEDS ORDERED: methylPREDNISolone Succ Inj 250 MG in Sodium Chloride 0.9% 100 ML IV ONE (14:34)
--- NOTE | 2017-03-09 14:34 | DI ---
CT ABD W/CN AND PELVIS W/CN,03/09/2017 12:49 PM: Clinical History: Abdominal pain. Previous Exam: None at this facility. Findings: Multiple helically acquired CT images are obtained through the abdomen and pelvis following the admin istration of 75 mL of Isovue-300, and demonstrate a normal appendix. The liver, gallbladder, spleen, pancreas, adrenals and kidneys are unremarkable. There is no mesenteric or retroperitoneal lymphadenopathy. Urinary bladder is unremarkable. There is no free air nor free fluid. The lung bases are clear. Impression: No acute intra-abdominal pathology.
--- NOTE | 2017-03-09 22:49 | PDOC ---
Abdomen/Flank HPI - General Chief Complaint: Abdomen Pain Stated Complaint: ABD PAIN/DIARRHEA Date Seen by Provider: 03/09/17 Time Seen by Provider: 12:35 Source: POSITIVE: Patient Exam Limitations: POSITIVE: No limitations Nurse's Notes Reviewed & Considered: Yes - History of Present Illness Initial Comments: The patient is a 36-year-old male. He presents to the emergency room complaining of diarrhea for the past week along with some associated lower abdominal pain. He states he's had nausea but no vomiting. No known fevers. Patient states he was diagnosed with clostridium to [place] in the past. He has a history of Crohn's disease. No history of abdominal surgery. 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 No melena or hematochezia. No fevers or chills. No urinary symptoms. Body Location Affected: REPORTS: Abdomen Timing: REPORTS: Constant Duration: <1 week (Approximately one week) Severity: Moderate Quality: REPORTS: Cramping, "Pain" (Lower abdomen) Abdominal Pain Onset Location: REPORTS: RLQ, LLQ Abdominal Pain Radiation: REPORTS: No radiation Context: REPORTS: None Modifying Factors: improves with: Nothing Associated Symptoms: REPORTS: Nausea Similar Symptoms Previously: Yes (with exacerbation of his Crohn's) Recent Care Received: REPORTS: Denies Any Prior Injuries Related to Current Complaint?: No - Patient Home Medications Home Medications: Home Medications Fluoxetine HCl [Prozac] 40 mg PO DAILY 11/13/16 traZODone Tab [Desyrel Tab] 50 mg PO HS PRN 11/13/16 HYDROcodone/APAP 10/325 Tab [[place] 10/325 Tab] 1 tab PO Q4H PRN #25 tab predniSONE Tab [Deltasone Tab] 10 mg PO DAILY #20 tab 03/09/17 - Patient Allergies Allergies/Adverse Reactions: Allergies Allergy/AdvReac Type Severity Reaction Status Date / Time No Known Allergies Allergy Verified 03/09/17 12:36 Past Medical History - heen HEENT History: Denies History Cardiovascular History: Denies History Respiratory History: Denies History Gastrointestinal History: GERD, Crohn's Genitourinary History: Kidney Stones Additional Genitourinary History: MAY 2016, OCT 2016 Endocrine History: Denies History Musculoskeletal History: Denies History Prosthesis or Implant: No Neurological History: Denies History Blood Disorders: Denies History Psychiatric History: Depression Additional Psychiatric History: 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 History of Sexually Transmitted Diseases: No Cancer History: Denies History In Past Year Been Physically Harmed or Verbally Threatened: No History of MDRO: No History of Other Communicable Diseases: No Tobacco Use: Former Smoker Alcohol Use: Rarely Substance Use Type: None Previous Surgical History: Yes Type / Date of Surgery: THORACIC OUTLET SURGERY, R SHOULDER Anesthesia Reactions: No Malignant Hyperthermia: No Significant Family History: No pertinent family hx Past Medical History Reviewed: Reviewed - No Changes ROS - Limitations ROS Limitations: No Limitations Constitution: REPORTS: Denies Symptoms Cardiovascular: REPORTS: Denies Cardiac Symptoms Respiratory: REPORTS: Denies Resp Symptoms Neurological: REPORTS: Denies Neuro Symptoms Gastrointestinal: REPORTS: Abdominal Pain, Nausea, Diarrhea Endocrine: REPORTS: Denies Symptoms Musculoskeletal: REPORTS: Denies MS Symptoms Eyes: REPORTS: Denies Symptoms ENT: REPORTS: Denies Symptoms Skin: REPORTS: Denies Skin Symptoms Lympathic: REPORTS: Denies Lympathic Symptoms Immunologic: POSITIVE: Denies Symptoms Psychiatric: POSITIVE: Denies Psych Symptoms Abdominal/Flank Pain PE - General Appearance General Appearance: POSITIVE: Alert, Cooperative, No Evidence of Trauma, Moderate Distress - HEENT HEENT: POSITIVE: Head Inspection Nml, Eyes Inspection Nml, Ears Inspection Nml, Nose Inspection Nml, Oral/Dental Inspect. Nml, Pharynx Inspect. Nml, PERRL, EOMI - Neck Neck: POSITIVE: Normal Inspection, No Apparent Injury - Respiratory Respiratory: POSITIVE: No Respiratory Distress, Breath Sounds Normal, Chest Non- Tender - Cardiovascular Cardiovascular: POSITIVE: Regular Rate and Rhythm, Heart Sounds Normal, Equal Pulses, Strong Pulses Peripheral Pulses: Radial (R): 2+, Radial (L): 2+ - Chest Chest: POSITIVE: Non Tender - Abdomen Abdomen: Soft: (All Quadrants), Normal Bowel Sounds: (All Quadrants), Denies Tenderness: (RUQ), (LUQ), No Splenomegaly: (All Quadrants), No Hepatomegaly: ( All Quadrants), No Guarding: (All Quadrants), No Rebound: (All Quadrants), No Palpable Pulse: (All Quadrants), No Palpabale Mass: (All Quadrants), No Distention: (All Quadrants), No Rigidity: (All Quadrants), Tenderness Noted: ( RLQ), (LLQ) Additional Abdominal Details: Abdominal examination shows bowel sounds to be present. Patient does expressed discomfort/pain on palpation over the left and right lower abdominal areas. No pain above the umbilicus. No masses, organomegaly or rebound. 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 Lab Results Reviewed: Yes Lab Results:: Laboratory Results 03/09/17 Range/Units 12:45 WBC 8.99 (4.8-10.8) 10^3/uL RBC 4.82 (4.70-6.10) 10^6/uL Hgb 14.1 (14.0-18.0) g/dL Hct 41.8 L (42.0-52.0) % MCV 86.7 (80-90) FL MCH 29.3 (27-31) PG MCHC 33.7 (33-37) g/dL RDW Std Deviation 40.0 (39-50) fL RDW Coeff of Malik 12.8 (11.5-14.5) % Plt Count 380 H (140-350) 10*3/uL MPV 9.7 (7.4-12.2) FL Immature Gran % (Auto) 0.6 (0-5) % Neut % (Auto) 68.6 (50-80) % Lymph % (Auto) 21.4 (10-50) % [place] % (Auto) 8.5 (5-15) % Eos % (Auto) 0.3 (0-8) % Baso % (Auto) 0.6 (0-1) % Immature Gran # (Auto) 0.05 10*3/UL Neut # (Auto) 6.18 10*3/UL Lymph # (Auto) 1.92 10*3/uL [place] # (Auto) 0.76 (0.3-0.8) 10*3/UL Eos # (Auto) 0.03 10*3/UL Baso # (Auto) 0.05 10*3/UL WBC Morphology Comment Normal morphology (NORM) Plt Morphology Comment Normal morphology (NORM) RBC Morph Comment Normal morphology (NORM) Sodium 141 (135-145) meq/L Potassium 3.2 L (3.8-5.2) meq/L Chloride 107 (98-112) meq/L Carbon Dioxide 21 L (23-33) meq/L Anion Gap 13 (5-20) BUN 8 (7-22) mg/dL Creatinine 0.8 (0.70-1.50) mg/dL Estimated GFR > 60 (>60 ml/min/1.73m(2)) BUN/Creatinine Ratio 10.00 (6-20) Glucose 85 (78-110) mg/dL Calculated Osmolality 288.0 (267-292) mOsm/kg Calcium 8.8 (8.7-10.7) mg/dL Total Bilirubin 0.5 (0.3-1.2) mg/dL AST 28 (21-57) IU/L ALT 48 (21-72) IU/L Alkaline Phosphatase 91 (38-126) IU/L Total Protein 7.7 (6.1-8.0) g/dL Albumin 4.2 (3.5-4.8) g/dL Globulin 3.5 (2.50-4.10) g/dL Albumin/Globulin Ratio 1.20 L (1.3-2.0) mg/g Amylase 81 (30-110) U/L Lipase 108 (23-300) IU/L - Patient's Progress Pain Medication Addressed: POSITIVE: Yes (Patient given Dilaudid for pain.) School/Work Release Addressed: POSITIVE: Not Applicable Re-examine Time: 14:30 Re-Examine Comment: Patient hydrated with normal saline and given Dilaudid for his abdominal pain and Zofran IV for nausea. 256 mg of Solu-Medrol ordered for flareup of Crohn's disease. Patient feels much better on discharge. Patient we discharged on prednisone, 40 mg tomorrow and the next day and then decrease by 10 mg daily. Hydrocodone/APAP every 6 hours as necessary for pain. Status: POSITIVE: Improved, Re-Examined - Consult Counseled: POSITIVE: Patient, RE: Lab Results, RE: Radiology Results, RE: DX, RE : Need for F/U Patient Care Time - Estimated PCT Patient Care Time (In Minutes): 50 Vital Signs - VS Reviewed Vital Signs Reviewed: Yes Discharge Clinical Impression: Crohns disease Discharge Disposition: Discharged to Home Condition: Fair Prescriptions / Orders: predniSONE Tab [Deltasone Tab] 10 mg PO DAILY #20 tab HYDROcodone/APAP 10/325 Tab [[place] 10/325 Tab] 1 tab PO Q4H PRN #25 tab PRN Reason: Pain Patient Instructions Given at Discharge: Crohn Disease (ED) Additional Instructions: I believe you're having an exacerbation of your Crohn's disease. Please take prednisone, 4 tablets today and tomorrow, and then decrease by one tablet every other day. Hydrocodone/APAP, one every 4 hours as necessary for pain. Your CT scan is normal. Your blood tests are normal and your test for C. difficile was negative. Follow-up with your primary care provider and Gastro and neurologist. Return here anytime if condition worsens in any way. Follow Up With: NONE,NONE [Primary Care Provider] - (Instructions and medication as above. Follow-up with your primary care provider and bowl attendant. Return here anytime as necessary.)
== END 2017-03-09 14:44 | disposition home or self-care (01) ==
LOC: ER 12:19
DX: K50.90 Crohn's disease, unspecified, without complications (principal); R10.32 Left lower quadrant pain; R10.31 Right lower quadrant pain; R11.0 Nausea; R19.7 Diarrhea, unspecified
CPT/HCPCS: 74177; 80053; 82150; 83690; 85025; 87046; 87205; 87328; 87329; 87493; 96361; 96374; 96375; 96376; 99283; J1170; J2405; J7030

== ENCOUNTER 2017-03-10 17:55 | Emergency (ER) | payer BC ==
[2017-03-10] MEDS ORDERED: NORMAL SALINE 10 ML SYRINGE FLUSH IVP PRN (18:10)
[2017-03-10] MEDS ORDERED: HYDROmorphone 2 MG/1 ML IVP ONE ×2 (18:10→19:34)
[2017-03-10] MEDS ORDERED: Sodium Chloride 0.9% 1,000 ML PRIMARY IV ONE (18:10)
[2017-03-10] MEDS ORDERED: ONDANSETRON 4 MG/2 ML VIAL IVP ONE (18:10)
[2017-03-10 18:18] LABS: BASOPHILS # (AUTO) 0.06 10*3/UL; BASOPHILS % (AUTO) 0.5 % (0-1); EOSINOPHILS # (AUTO) 0.32 10*3/UL; EOSINOPHILS % (AUTO) 2.4 % (0-8); HEMATOCRIT 40.1 % (42.0-52.0); HEMOGLOBIN 13.6 g/dL (14.0-18.0); LYMPHOCYTES # (AUTO) 3.23 10*3/uL; MEAN CORPUSCULAR HEMOGLOBIN 29.7 PG (27-31); MEAN CORPUSCULAR HGB CONC 33.9 g/dL (33-37); MEAN CORPUSCULAR VOLUME 87.6 FL (80-90); MEAN PLATELET VOLUME 9.4 FL (7.4-12.2); MONOCYTES # (AUTO) 0.85 10*3/UL (0.3-0.8); MONOCYTES % (AUTO) 6.4 % (5-15); NEUTROPHILS # (AUTO) 8.79 10*3/UL; RED BLOOD COUNT 4.58 10^6/uL (4.70-6.10)
[2017-03-10 18:28] LABS: PLATELET MORPHOLOGY COMMENT NORMAL MORPHOLOGY (NORM); RBC MORPHOLOGY COMMENT NORMAL MORPHOLOGY (NORM); WBC MORPHOLOGY COMMENT NORMAL MORPHOLOGY (NORM)
[2017-03-10 18:34] VITALS: RESP 20; TEMP 97.3
[2017-03-10 19:04] LABS: CALCIUM 8.6 mg/dL (8.7-10.7); EST GLOMERULAR FILTRATION > 60 (>60 ml/min/1.73m(2)); MAGNESIUM 2.1 mg/dL (1.6-2.4); SERUM ALBUMIN 3.9 g/dL (3.5-4.8)
[2017-03-10 21:00] LABS: C-REACTIVE PROTEIN 0.1 mg/dL (0.0-0.9); LIPASE 81 IU/L (23-300)
--- NOTE | 2017-03-10 21:22 | PDOC ---
Abdomen/Flank HPI - General Chief Complaint: Abdomen Pain Stated Complaint: ABDOMINAL PAIN AND DIARRHEA Date Seen by Provider: 03/10/17 Time Seen by Provider: 18:15 Source: POSITIVE: Patient Exam Limitations: POSITIVE: No limitations Nurse's Notes Reviewed & Considered: Yes - History of Present Illness Initial Comments: The patient is a 36-year-old male who presents to the emergency department with abdominal pain and continued diarrhea. He states that he has a history of Crohn 's disease. He was evaluated here in the emergency room yesterday with increased abdominal pain, blood in the stool and diarrhea. He underwent workup which included normal blood work and a normal CT scan of the abdomen and pelvis. He had been treated with Solu-Medrol and was discharged home with a prescription for prednisone and [place]. He states that his pain has intensified today. He has not had any nausea or vomiting however he reports greater than 20 bowel movements today. He states that these are not containing as much blood as they were previously. He denies any fevers or chills, urinary complaints or any other associated symptoms. He has not had any prior abdominal surgery. - Patient Home Medications Home Medications: Home Medications Fluoxetine HCl [Prozac] 40 mg PO DAILY 11/13/16 traZODone Tab [Desyrel Tab] 50 mg PO HS PRN 11/13/16 HYDROcodone/APAP 10/325 Tab [[place] 10/325 Tab] 1 tab PO Q4H PRN #25 tab predniSONE Tab [Deltasone Tab] 10 mg PO DAILY #20 tab 03/09/17 - Patient Allergies Allergies/Adverse Reactions: Allergies Allergy/AdvReac Type Severity Reaction Status Date / Time No Known Allergies Allergy Verified 03/10/17 18:13 Past Medical History - heen HEENT History: Denies History Cardiovascular History: Denies History Respiratory History: Denies History Gastrointestinal History: GERD, Crohn's Genitourinary History: Kidney Stones Additional Genitourinary History: MAY 2016, OCT 2016 Endocrine History: Denies History Musculoskeletal History: Denies History Prosthesis or Implant: No Neurological History: Denies History Blood Disorders: Denies History Psychiatric History: Depression Additional Psychiatric History: 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 History of Sexually Transmitted Diseases: No Cancer History: Denies History In Past Year Been Physically Harmed or Verbally Threatened: No History of MDRO: No History of Other Communicable Diseases: No Tobacco Use: Never Smoker Alcohol Use: Rarely Substance Use Type: None Previous Surgical History: Yes Type / Date of Surgery: THORACIC OUTLET SURGERY, R SHOULDER Anesthesia Reactions: No Malignant Hyperthermia: No Significant Family History: No pertinent family hx Past Medical History Reviewed: Reviewed - No Changes ROS - Limitations ROS Limitations: No Limitations Constitution: DENIES: Chills, Fever Cardiovascular: REPORTS: Denies Cardiac Symptoms Respiratory: REPORTS: Denies Resp Symptoms Neurological: REPORTS: Denies Neuro Symptoms Gastrointestinal: REPORTS: Abdominal Pain, Diarrhea. DENIES: Nausea, Vomitting , Black Stools, Bloody Stools Endocrine: REPORTS: Denies Symptoms Genitourinary: REPORTS: Denies Symptoms Eyes: REPORTS: Denies Symptoms ENT: REPORTS: Denies Symptoms Skin: DENIES: Rash Abdominal/Flank Pain PE - General Appearance General Appearance: POSITIVE: Alert, Cooperative, No Acute Distress - HEENT HEENT: POSITIVE: Head Inspection Nml. NEGATIVE: Dry Mucous Membranes - Neck Neck: POSITIVE: Normal Inspection - Respiratory Respiratory: POSITIVE: No Respiratory Distress, Breath Sounds Normal - Cardiovascular Cardiovascular: POSITIVE: Regular Rate and Rhythm, Heart Sounds Normal - Abdomen Abdomen: Soft: (All Quadrants), Normal Bowel Sounds: (All Quadrants), No Guarding: (All Quadrants), No Rebound: (All Quadrants) Additional Abdominal Details: Generalized abdominal tenderness with more prominence in the right lower quadrant and mid lower abdomen. - Skin Skin: POSITIVE: Intact, No Rash - Extremities Extremity: Normal ROM: (All Extremities), Normal Inspection: (All Extremities) - Neurological Neurological: POSITIVE: Other (No focal neurologic deficits) Abdomen Progress - Results Reviewed by me Xrays/CTs/US Reviewed by me: Yes Radiology Findings: Abdominal series reveals non-obstructive bowel gas pattern with no evidence of free air. Lab Results Reviewed: Yes Lab Results:: Laboratory Results 03/10/17 Range/Units 18:15 WBC 13.30 H (4.8-10.8) 10^3/uL RBC 4.58 L (4.70-6.10) 10^6/uL Hgb 13.6 L (14.0-18.0) g/dL Hct 40.1 L (42.0-52.0) % MCV 87.6 (80-90) FL MCH 29.7 (27-31) PG MCHC 33.9 (33-37) g/dL RDW Std Deviation 40.5 (39-50) fL RDW Coeff of Malik 12.9 (11.5-14.5) % Plt Count 365 H (140-350) 10*3/uL MPV 9.4 (7.4-12.2) FL Immature Gran % (Auto) 0.4 (0-5) % Neut % (Auto) 66.0 (50-80) % Lymph % (Auto) 24.3 (10-50) % Lipscomb % (Auto) 6.4 (5-15) % Eos % (Auto) 2.4 (0-8) % Baso % (Auto) 0.5 (0-1) % Immature Gran # (Auto) 0.05 10*3/UL Neut # (Auto) 8.79 10*3/UL Lymph # (Auto) 3.23 10*3/uL Lipscomb # (Auto) 0.85 H (0.3-0.8) 10*3/UL Eos # (Auto) 0.32 10*3/UL Baso # (Auto) 0.06 10*3/UL WBC Morphology Comment Normal morphology (NORM) Plt Morphology Comment Normal morphology (NORM) RBC Morph Comment Normal morphology (NORM) Sodium 144 (135-145) meq/L Potassium 3.7 L (3.8-5.2) meq/L Chloride 107 (98-112) meq/L Carbon Dioxide 24 (23-33) meq/L Anion Gap 13 (5-20) BUN 4.0 L (7-22) mg/dL Creatinine 1.0 (0.70-1.50) mg/dL Estimated GFR > 60 (>60 ml/min/1.73m(2)) BUN/Creatinine Ratio 4.00 L (6-20) Glucose 77 L (78-110) mg/dL Calculated Osmolality 293.0 H (267-292) mOsm/kg Calcium 8.6 L (8.7-10.7) mg/dL Magnesium 2.1 (1.6-2.4) mg/dL Total Bilirubin 0.5 (0.3-1.2) mg/dL AST 62 H (21-57) IU/L ALT 46 (21-72) IU/L Alkaline Phosphatase 82 (38-126) IU/L C-Reactive Protein 0.1 (0.0-0.9) mg/dL Total Protein 7.4 (6.1-8.0) g/dL Albumin 3.9 (3.5-4.8) g/dL Globulin 3.5 (2.50-4.10) g/dL Albumin/Globulin Ratio 1.10 L (1.3-2.0) mg/g Amylase 73 (30-110) U/L Lipase 81 (23-300) IU/L - Patient's Progress MDM / ED Course: Shortly after arrival an IV was established and the patient did receive a 1 L bolus of normal saline as well as Dilaudid 1 mg and Zofran 1 mg IV. He did have some improvement of pain however that his pain returned after x-rays and he received a second dose of Dilaudid 1 mg IV. His lab work is all essentially unremarkable except for a mildly elevated white count which is likely secondary to administration of steroids yesterday. He also has slightly elevated transaminase. His abdominal series shows no evidence of free air and nonobstructive bowel gas pattern. The CAT scan of his abdomen and pelvis done yesterday showed no acute intra-abdominal findings. I did review the patient's medical record and he was seen here in January with similar presentation of Crohn' s exacerbation with a normal CT at that time as well. In addition he was seen one time in January with flank pain and diagnosed with kidney stone although there is no visible kidney stones on his CT. I subsequently looked the patient up in the [facility] [employer] of [employer] narcotic surveillance program. The patient has had multiple prescriptions for narcotic medications from multiple providers across the [facility] over the past several months. I subsequently went back to the patient and asked if he had been seen by other physicians for similar complaints and he reported that he is scheduled to see a GI doctor in [place] next Thursday however he did not remember the name of the doctor and he denied seeing anybody else. I then relayed that I had looked him up in the [facility] [employer] of [employer] review and noted that he had had multiple narcotic prescriptions from multiple providers over the past several months. I relayed my concern that this was consistent with drug-seeking behavior and narcotic addiction. I asked if he had any other explanation for these multiple prescriptions and he said no. I encouraged the patient to seek treatment for addiction and referred him to [facility]. I told the patient that there is no objective evidence that the patient has Crohn's exacerbation however I did encourage him to follow-up with his GI specialist as scheduled if in fact this is scheduled. He was advised that I would not prescribe any further narcotic pain medication. He is to return to the emergency room if he develops any worsening or change in symptoms. - Consult Counseled: POSITIVE: Patient, RE: Lab Results, RE: Radiology Results, RE: DX, RE : Need for F/U Patient Care Time - Estimated PCT Patient Care Time (In Minutes): 35 Vital Signs - Recent Vital Signs Vital Signs: Vital Signs (Last 8 hours) Temp Pulse Resp BP Pulse Ox 03/10/17 18:10 97.3 F 100 20 162/118 93 - VS Reviewed Vital Signs Reviewed: Yes Discharge Clinical Impression: Abdominal pain, Crohns disease, Drug-seeking behavior Condition: Stable Patient Instructions Given at Discharge: Crohn Disease (ED), Acute Abdominal Pain (ED) Additional Instructions: The CAT scan done yesterday here in the emergency room did not reveal any evidence of inflammation in the bowel or obvious Crohn's disease, your prior CAT scans also were unremarkable in January. I certainly would recommend keeping her appointment with your loan servicing officer in [place] on Thursday. Finish the course of prednisone prescribed by the emergency room physician yesterday. In addition it was apparent that you had been receiving narcotic prescriptions from various providers across the [facility] over the past several months. This is concerning for narcotic addiction and drug-seeking behavior. I would recommend that you seek treatment for this. You can follow up with [facility] to inquire about addiction therapy. In addition there is a detox center in [place]. Because of these issues no further narcotic pain medications will be prescribed. Recommend returning to the emergency room if increased vomiting or dehydration, fever, increased pain, any worsening or change in symptoms. Follow Up With: NONE,NONE [Primary Care Provider] -
--- NOTE | 2017-03-10 21:37 | DI ---
XR ABDOMEN ACUTE 2/ABD 1/CXR,03/10/2017 6:10 PM: Clinical History: Abdominal pain Previous Exam: None at this facility. Findings: A routine acute abdominal series is performed, and demonstrates no evidence of obstruction. There are no pathologic calcifications identified. Skeletal structures are unremarkable. The lungs are clear. There is no subdiaphragmatic free air. The cardiomediastinum and bony thorax are unremarkable. Impression: No acute disease.
== END 2017-03-10 19:56 | disposition home or self-care (01) ==
LOC: ER 17:55
DX: K50.90 Crohn's disease, unspecified, without complications (principal); R10.84 Generalized abdominal pain; R19.7 Diarrhea, unspecified; Z76.5 Malingerer [conscious simulation]
CPT/HCPCS: 74022; 80053; 82150; 83690; 83735; 85025; 86140; 96361; 96374; 96375; 96376; 99283; J1170; J2405; J7030